=== PATIENT | female | born 1985 | race Caucasian/White ===

== ENCOUNTER 2018-10-19 11:03 | Outpatient (CLI) | payer OTHER | END 2018-10-19 11:04 | disposition home or self-care (01) | LOC: CTENTCT 11:03 | PROVIDERS: ATTEND Otolaryngology Plastic Surgery within the Head & Neck | DX: J32.9 Chronic sinusitis, unspecified (principal) | CPT/HCPCS: 70486 ==

== ENCOUNTER 2018-10-25 06:59 | Day surgery (SDC) | payer OTHER ==
[2018-10-24 13:02] VITALS: BMI 26.6
[2018-10-25] MEDS ORDERED: Oxymetazoline HCl 0.05% ( 15 ML ) ONE ×2 (08:33→09:50)
[2018-10-25 09:31] LABS: Hemoglobin 13.3 g/dL (12.0-16.0)
[2018-10-25] MEDS ORDERED: Lidocaine 1% w/Epinephrine 1:100K 20 ML VIAL ONE (09:49)
[2018-10-25] MEDS ORDERED: Bacitracin Zinc Ointment 30 gm TUBE ONE (09:50)
[2018-10-25] MEDS ORDERED: Fentanyl 100 MCG/2 ML VIAL ONE ×3 (10:10→11:14)
[2018-10-25] MEDS ORDERED: Midazolam HCl 2 mg/2 ml Vial ONE (10:15)
[2018-10-25] MEDS ORDERED: Hydrocodone-Acetamin 15 ML UDCUP ONE (13:35)
[2018-10-25] MEDS ORDERED: ePHEDrine 50 MG/ML VIAL ONE (16:31)
[2018-10-25] MEDS ORDERED: Rocuronium Bromide 10 MG/ML (10ML VIAL) ONE (16:31)
[2018-10-25] MEDS ORDERED: Ondansetron PF 4 MG/2 ML Vial ONE (16:31)
[2018-10-25] MEDS ORDERED: PROPOFOL 200 MG/20 ML VIAL ONE (16:31)
[2018-10-25] MEDS ORDERED: Glycopyrrolate 0.2 MG/ML 5 ML SYRINGE ONE (16:31)
[2018-10-25] MEDS ORDERED: Dexamethasone 20 MG/5 ML VIAL ONE (16:31)
[2018-10-25] MEDS ORDERED: Lidocaine 1% PF 5 ML VIAL ONE (16:31)
--- NOTE | 2018-10-26 09:49 | OP ---
DATE OF PROCEDURE: 10/25/2018 PREOPERATIVE DIAGNOSES: 1. Chronic rhinosinusitis. 2. Bilateral inferior turbinate hypertrophy. 3. Nasal obstruction. 4. Chronic adenotonsillitis. 5. Adenotonsillar hypertrophy. POSTOPERATIVE DIAGNOSES: 1. Chronic rhinosinusitis. 2. Bilateral inferior turbinate hypertrophy. 3. Nasal obstruction. 4. Chronic adenotonsillitis. 5. Adenotonsillar hypertrophy. PROCEDURES PERFORMED: 1. Bilateral endoscopic sinus surgery, total ethmoidectomies. 2. Bilateral endoscopic sinus surgery, maxillary antrostomies. 3. Bilateral endoscopic sinus surgery, frontal sinusotomies. 4. Bilateral endoscopic sinus surgery, sphenoidotomies. 5. Tonsillectomy and adenoidectomy. 6. Bilateral inferior turbinate submucosal resection. ESTIMATED BLOOD LOSS: 20 mL. COMPLICATIONS: None. ANESTHESIA: GETA. PROCEDURE IN DETAIL: TONSILLECTOMY-ADENOIDECTOMY: After consent was obtained, the patient was identified, brought to the operating room, and placed on the operating table in the supine position. General endotracheal anesthesia and intravenous access were obtained and we proceeded with positioning the patient for oropharyngeal surgery. Oropharyngeal exposure was obtained with a Gaye-Leroy mouth gag after a head drape was placed and secured with a towel clip. The Gaye-Leroy mouth gag was then suspended from the Sloan tray and palatal elevation was achieved with a red rubber catheter. The right tonsil was addressed first. We used a curved Allis to grasp the tonsil and retract it medially as an anterior pillar incision was made. The retrotonsillar fascial plane was then established and blunt dissection was performed with the suction cautery. Blood vessels were anticipated, identified, and cauterized as they were encountered. Ultimately, dissection was carried to the posterior tonsillar pillar mucosa which was incised hemostatically, as well as the base of tongue connection. The tonsil was then passed off as a specimen and bleeding points within the tonsillar bed were cauterized under direct visualization. We subsequently turned our attention to the contralateral side, where using a similar technique, a near identical procedure was performed. Again, the tonsil was grasped and retracted medially with a curved Allis. The retrotonsillar fascial plane was established and while the anterior pillar was retracted medially. The hemostatic blunt dissection of the tonsil with a suction cautery was performed with blood vessels anticipated, identified, and cauterized as they were encountered. Again, dissection continued to the base of tongue and posterior tonsillar pillar mucosa which was incised in a hemostatic fashion. The tonsillar beds were then carefully inspected and bleeding points were identified and cauterized with a suction cautery. After this portion of the procedure, hemostasis was completely obtained. Under direct mirror visualization, we visualized the adenoid pad. Under direct mirror visualization, we removed the bulk of the adenoid tissue with the adenoid curette. We then packed the nasopharynx for an appropriate period of time with [id number] tonsillar sponges. After a period of observation, we removed the pack. Under indirect mirror visualization, we obtained hemostasis and vaporization of residual adenoid tissue with electrocautery. The patient's oral cavity was copiously irrigated with iced saline and subsequently suctioned. After completion of the procedure, the nasal cavity and oropharynx were irrigated and suctioned as were the gastric contents. The patient was then awakened and transferred to the recovery room where the patient remained in stable condition prior to discharge to Day Stay. Following this, the 0-degree scope was advanced into the nasal cavity. 1% lidocaine with 1:100,000 epinephrine was injected into the inferior turbinates, middle turbinates, and lateral nasal wall bilaterally. 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 On the left side, a vertical incision was made in the anterior face of the left middle turbinate and the lateral wall of the left middle turbinate carmine bullosa was removed using the straight Blakesley forceps and a microdebrider. On the right side, the carmine bullosa was medialized and crushed and the lateral wall was removed using the 0-degree microdebrider. Following this, the uncinate process was visualized and was noted to be lateralized and very atrophic. This was anteriorly fractured using a ball-ended probe and then was removed using the 0-degree microdebrider and up-biting Blakesley forceps bilaterally. Following this, the natural maxillary sinus ostia was identified and was gently widened using the curved microdebrider and straight Blakesley forceps bilaterally. Following this, the ethmoidal bulla was identified and was punctured on its medial and inferior aspects and then was removed using the microdebrider. Following this, the grand lamella was identified and was punctured into the posterior ethmoidal cells using a 0-degree microdebrider. Working from posterior to anterior, the ethmoidal cells were opened bilaterally using the 0-degree microdebrider, curved microdebrider, and up-biting Blakesley forceps. Following this, the sphenoid sinuses were approached through the previous ethmoidectomies where the anterior wall of the sphenoid sinus was identified and a Ojeda tip suction was used to create a sphenoidotomy at the location of the natural sphenoid ostia. The sphenoidotomy was then widened medially and inferiorly using the microdebrider bilaterally. Following this, a 45-degree endoscope was used to visualize the frontal recess and a 40-degree microdebrider blade was used to widen the frontal sinus ostia bilaterally. Following this, the nasal cavity was irrigated. Mirapex was placed within the middle meatus. Inferior turbinates were then punctured with a submucosal microdebrider and then submucosal resection was performed of the anterior and inferior portions of the inferior turbinates. The patient tolerated the procedure well. Job ID: [id number]
== END 2018-10-25 13:55 | disposition home or self-care (01) ==
LOC: SDC 06:59
PROVIDERS: ATTEND Otolaryngology Plastic Surgery within the Head & Neck
PROC: 099S8ZZ Drainage of Right Frontal Sinus, Via Natural or Artificial Opening Endoscopic (ICD-10-PCS; principal; 2018-10-25)
PROC: 099Q8ZZ Drainage of Right Maxillary Sinus, Via Natural or Artificial Opening Endoscopic (ICD-10-PCS; principal; 2018-10-25)
PROC: 099R8ZZ Drainage of Left Maxillary Sinus, Via Natural or Artificial Opening Endoscopic (ICD-10-PCS; principal; 2018-10-25)
PROC: 099V8ZZ Drainage of Left Ethmoid Sinus, Via Natural or Artificial Opening Endoscopic (ICD-10-PCS; principal; 2018-10-25)
PROC: 0CTPXZZ Resection of Tonsils, External Approach (ICD-10-PCS; principal; 2018-10-25)
PROC: 099W8ZZ Drainage of Right Sphenoid Sinus, Via Natural or Artificial Opening Endoscopic (ICD-10-PCS; principal; 2018-10-25)
PROC: 099T8ZZ Drainage of Left Frontal Sinus, Via Natural or Artificial Opening Endoscopic (ICD-10-PCS; principal; 2018-10-25)
PROC: 0CTQXZZ Resection of Adenoids, External Approach (ICD-10-PCS; principal; 2018-10-25)
PROC: 09BL8ZZ Excision of Nasal Turbinate, Via Natural or Artificial Opening Endoscopic (ICD-10-PCS; principal; 2018-10-25)
PROC: 099X8ZZ Drainage of Left Sphenoid Sinus, Via Natural or Artificial Opening Endoscopic (ICD-10-PCS; principal; 2018-10-25)
PROC: 099U8ZZ Drainage of Right Ethmoid Sinus, Via Natural or Artificial Opening Endoscopic (ICD-10-PCS; principal; 2018-10-25)
DX: J32.8 Other chronic sinusitis (principal); J34.3 Hypertrophy of nasal turbinates; J35.03 Chronic tonsillitis and adenoiditis; J34.89 Other specified disorders of nose and nasal sinuses; J30.9 Allergic rhinitis, unspecified; G43.909 Migraine, unspecified, not intractable, without status migrainosus; E03.9 Hypothyroidism, unspecified; Z79.899 Other long term (current) drug therapy
CPT/HCPCS: 85014; 85018; 88304; J0131; J1100; J2001; J2250; J2405; J2704; J3010; J3490

== ENCOUNTER 2022-10-25 13:34 | Outpatient (CLI) | payer BC | END 2022-10-25 13:35 | disposition home or self-care (01) | LOC: NM 13:34 | PROVIDERS: ATTEND Internal Medicine Gastroenterology | DX: R10.11 Right upper quadrant pain (principal) | CPT/HCPCS: 78227; A9537 ==